=== PATIENT | female | born 1955 | race Caucasian/White ===

== ENCOUNTER 2019-01-11 09:25 | Outpatient (CLI) | payer OTHER ==
[2019-01-11 15:15] LABS: #Basophils 0.1 thou/uL (0.0-0.2); #Eosinphils 0.3 thou/uL (0.0-0.7); #Lymphocytes 2.9 thou/uL (1.20-3.40); #Monocytes 0.5 thou/uL (0.11-0.59); #Neutrophils 4.2 thou/uL (1.40-6.50); %Basophils 1.1 % (0.0-1.0); %Eosinophils 3.8 % (0.0-10.0); %Lymphocytes 36.7 % (21.0-51.0); %Monocytes 6.4 % (0.0-10.0); Hemoglobin 15.3 g/dL (12.0-16.0); Mean Corpuscular Hemoglobin 29.9 pg (27.0-31.0); Mean Corpuscular Volume 88.1 fL (78.0-98.0); Mean Platelet Volume 8.1 fL (7.4-10.4); Platelet Count 295 thou/uL (130-400); Red Blood Cell (RBC) Count 5.12 mill/uL (4.20-5.40)
[2019-01-11 15:46] LABS: Hemoglobin A1c 9.3 % (4.0-6.0)
[2019-01-11 15:55] LABS: ALT (SGPT) 28 U/L (8-55); AST (SGOT) 24 U/L (5-34); Albumin 4.3 g/dL (3.4-4.8); Alkaline Phosphatase 52 U/L (40-150); Anion Gap 15 mmol/L (10-20); BUN (Urea Nitrogen) 14 mg/dL (9.8-20.1); Bilirubin, Total 0.5 mg/dL (0.2-1.2); Calc. Creatinine Clearance 0 mL/min (70-130); Calcium 10.1 mg/dL (7.8-10.44); Carbon Dioxide 31 mmol/L (23-31); Cardiac Risk 3.5 (Less than 4.5); Chloride 98 mmol/L (98-107); Cholesterol 98 mg/dl (< 200 Desired); Estimated GFR-MDRD 75; Globulin 3.2 g/dL (2.4-3.5); Glucose 234 mg/dL (80-115); HDL Cholesterol 28 mg/dL (>60 Neg Risk); LDL Cholesterol, Calculated 19 mg/dL; Protein, Total 7.5 g/dL (6.0-8.3); Sodium 140 mmol/L (136-145); Triglycerides 256 mg/dL (Less than 150)
[2019-01-11 16:01] LABS: Creatinine, Urine 217.88 mg/dL (47-110); Microalbumin Urine 105.2 mg/dL (0.5-50.0); Microalbumin/Creat Ratio 482.8 mg/g (Less than 30)
[2019-01-11 16:13] LABS: Free T4 (Free Thyroxine) 1.2 ng/dL (0.70-1.48); Thyroid Stimulating Hormone 1.7722 uIU/mL (0.35-4.94)
== END 2019-01-11 09:26 | disposition home or self-care (01) ==
LOC: NAV LAB 09:25
PROVIDERS: ATTEND Family Medicine
DX: Z11.59 Encounter for screening for other viral diseases (principal); E11.9 Type 2 diabetes mellitus without complications
CPT/HCPCS: 36415; 80053; 80061; 82043; 83036; 84439; 84443; 85025; 87521